=== PATIENT | male | born 2000 | race Two or more races ===

== ENCOUNTER → 2020-05-18 | Day surgery (SDC) | payer OTHER ==
[2020-05-18] VITALS (11 sets, daily range): BP systolic 124–142; BP diastolic 71–87
[~2020-05-18] VITALS: Ht 167.6 cm; Wt 68.0 kg
[~2020-05-18] MED LIST: Bacitracin 50000 Units Vial ONE; Bupivacaine 0.25% Inj 30ml INJ ONE; D5 1/2NS 1,000 ML IV SCH; DiphenhydrAMINE 50mg/ml Inj IVP PRN; EPINEPHrine 1mg/1ml Amp ONE; HYDROcodone/Acetamin 5/325 tab ORAL PRN; HYDROmorphone 1mg/ml Carpuject SUBQ PRN; Hydrogen Peroxide 473ml Bottle TOPIC ONE; Hydromorphone 0.5mg/0.5ml inj IVP PRN; Ketorolac 30mg Inj IV PRN; Ketorolac 30mg Inj ONE; LORazepam Inj 2mg/ml 1ml IV PRN; LR 1000ml 1,000 ML IVLG SCH; Labetalol 5mg/ml 20ml vial IV PRN; Lidocaine 1% MPF 10mg/ml 5ml ONE; Metoclopramide 10mg/2ml Inj IVP PRN; Metoclopramide 10mg/2ml Inj ONE; Midazolam 2mg/2ml Inj ONE; NeoSporin Gu Irrig 1ml Amp IRRIG ONE; TYLENOL EXTRA500 MG ORAL; Tylenol #3 tab (300mg/30mg) ORAL PRN; ceFAZolin 1gm IVPB IVPB ONE; celeBREX 200mg Cap **SURGERY PATIENTS ONLY ORAL ONE; fentaNYL 100 mcg/2 mL IV ONE; fentaNYL 100 mcg/2 mL IV PRN; oxyCONTIN 20mg tab ORAL ONE
--- NOTE | 2020-05-18 11:32 | Anethesia Preoperative Eval ---
Anesthesia Pre-op PMH/ROS General Date of Evaluation: May 18, 2020 Anesthesiologist: Yoni ASA Score: ASA 1 Mallampati Score Class I : Soft palate, uvula, fauces, pillars visible Class II: Soft palate, uvula, fauces visible Class III: Soft palate, base of uvula visible Class IV: Only hard plate visible Mallampati Classification: Class I Surgeon: Genaro Diagnosis: Right ankle fracture Surgical Procedure: Right ankle ORIF Anesthesia History: none Family History: no anesthesia problems Allergies: Coded Allergies: No Known Allergies (Unverified , 05/18/20) Medications: see eMAR Patient NPO?: Yes NPO Date: May 18, 2020 NPO Time: 00:00 Past Medical History Cardiovascular: Denies: HTN, CAD, ME, valve dz, arrhythmia, other Pulmonary: Denies: asthma, COPD, ÁLVARO, other Gastrointestinal/Genitourinary: Denies: GERD, CRI, ESRD, other Neurologic/Psychiatric: Denies: dementia, CVA, depression/anxiety, TIA, other Endocrine: Denies: DM, hypothyroidism, steroids, other HEENT: Denies: cataract (L), cataract (R), glaucoma, LUMMI (L), LUMMI (R), other Hematology/Immune: Denies: anemia, DVT, bleeding disorder, other Musculoskeletal/Integumentary: Denies: OA, RA, DJD, DDD, edema, other PSxH Narrative: Denies Anesthesia Pre-op Phys. Exam Physician Exam see chart Constitutional: NAD Cardiovascular: RRR Respiratory: CTA Airway Exam Mallampati Score: Class I MO: full ROM: full Teeth: intact Anesthesia Pre-op A/P Labs see chart Risk Assessment & Plan Assessment: ASA I Plan: GA with peripheral nerve block Status Change Before Surgery: No Pre-Antibiotics Drug: Ancef 1g Given Within 1 Hr of Incision: Yes Ashli Vallejo MD May 18, 2020 11:32
--- NOTE | 2020-05-18 13:58 | Pre-Procedure Note/Attestation ---
Pre-Procedure Note/Attestation Complete Prior to Procedure Planned Procedure: left Procedure Narrative: ankle orif Indications for Procedure Pre-Operative Diagnosis: left ankle fracture Attestation I attest that I discussed the nature of the procedure; its benefits; risks and complications; and alternatives (and the risks and benefits of such alternatives), prior to the procedure, with the patient (or the patient's legal indirect sales representative). I attest that, if there was a reasonable possibility of needing a blood yoo sfusion, the patient (or the patient's legal indirect sales representative) was given the [facility] standardized written summary, pursuant to the [employer] Blood Safety Act ([place] Health and Safety Code # 1645, as amended). I attest that I re-evaluated the patient just prior to the surgery and that there has been no change in the patient's H&P, except as documented below: Leroy Lam MD May 18, 2020 13:58
--- NOTE | 2020-05-18 13:58 | Operative Note - PDOC ---
Operative Note Operative Note Pre-op Diagnosis: left ankle fracture Procedure: see op report Post-op Diagnosis: same as pre-op plus Operative Findings: consistent w/pre-op dx studies Anesthesia: regional Specimen: none Complications: none Condition: stable Estimated Blood Loss: none Implant(s) used?: Yes Leroy Lam MD May 18, 2020 13:58
--- NOTE | 2020-05-18 17:31 | 48 Hour Post Anesthesia Eval ---
Post Anesthesia Evaluation Procedure: Right ankle ORIF Date of Evaluation: May 18, 2020 Airway: patent Nausea: No Vomiting: No Pain Intensity: 0 Hydration Status: adequate Cardiopulmonary Status: at baseline Mental Status/LOC: patient returned to baseline Post-Anesthesia Complications: 0 Follow-up care needed: ready to discharge Ashli Vallejo MD May 18, 2020 17:31
--- NOTE | 2020-05-18 17:31 | Immediate Post-Op Evaluation ---
Immediate Post-Op Evalulation Immediate Post-Op Evalulation Procedure: Right ankle ORIF Date of Evaluation: May 18, 2020 Time of Evaluation: 17:32 IV Fluids: 750 Blood Products: 0 Estimated Blood Loss: min Urinary Output: 0 Blood Pressure Systolic: 134 Blood Pressure Diastolic: 71 Pulse Rate: 98 Respiratory Rate: 16 O2 Sat by Pulse Oximetry: 100 Temperature (Fahrenheit): 99 Pain Score (1-10): 0 Nausea: No Vomiting: No Complications 0 Patient Status: awake, reacts, patent, none Hydration Status: adequate Drug: Ancef 1g Given Within 1 Hr of Incision: Yes Ashli Vallejo MD May 18, 2020 17:31
--- NOTE | 2020-05-19 01:14 | Operative Note - Dictated ---
DATE OF OPERATION: 05/18/2020 PREOPERATIVE DIAGNOSES: 1. Right pronation external rotation ankle fracture dislocation. 2. Right syndesmosis instability. POSTOPERATIVE DIAGNOSES: 1. Right pronation external rotation ankle fracture dislocation. 2. Right syndesmosis instability. PROCEDURES: 1. Open reduction and internal fixation of right ankle fracture dislocation with plate and screw fixation of the fibula, closed reduction and percutaneous pinning, medial malleolus. 2. Open syndesmosis repair. 3. Application of posterior splint. SURGEON: Leroy Lam MD ANESTHESIA: Popliteal with general. INDICATION FOR PROCEDURE: Patient is a pleasant gentleman who has had a significant injury to his right ankle. He was diagnosed with unstable ankle fracture dislocation indicative of operative fixation. Risks, limitations, expectations, and complications of procedure were discussed in detail including nonunion, malunion, need for future surgery, risk of anesthesia, medical complications, DVT, PE, mortality risks, need for future surgeries such as removal of the hardware, and additional comorbidities were all discussed in detail, questions were addressed. DESCRIPTION OF PROCEDURE: After informed consent was obtained, patient was brought into the operating room. Patient was placed under general anesthesia. Right leg was prepped and draped in a sterile manner. Time-out was performed. Examination under anesthesia showed positive disruption of syndesmosis, external rotation test. The fibula appeared to be somewhat transverse. Skin was marked out on the lateral fibula. Skin was incised. Subcutaneous fascia was dissected out maintained good subcutaneous flaps. Lateral aspect of the fibula was fracture site. There was an oblique nature of the fracture site, which allowed it to have lag screw fixation. Therefore, reduction of the fibula was performed. A lag screw was placed. Once that was done, a 7-hole tubular plate was selected and placed along the fibula. Two proximal and one distal locking screws were placed. At this point, attention was turned towards the medial malleus fixation. K-wire was then placed at the medial malleolus along with two 32 mm partially-threaded cannulated screws. Once this was done, external rotation drawer test was still somewhat positive the syndesmosis. Therefore, 2 Biomet syndesmosis repair suture anchor implants were placed. Once the syndesmosis was repaired, external rotation and drawer tests were negative. with external drawer test showed good reduction of the medial and lateral mortise with no widening of the syndesmosis of the external rotation test. At this point, the wound was copiously irrigated. Subcutaneous tissue was approximated using 2-0 Vicryl, 3-0 Vicryl, and 3-0 Monocryl sutures. Steri-Strips and a sterile dressing were applied along with the posterior splint. The patient was awoken and taken to the recovery room with stable vital signs. ESTIMATED BLOOD LOSS: None. COMPLICATIONS: None. SPECIMENS: None. IMPLANTS: Include Kb one-third tubular plate, 3 cortical screws, two 32 mm partially threaded cannulated screws, 2 Biomet open syndesmosis, TightRope Repair Kit implants. Leroy Lam M.D. DR: DANIELLA JOB#: [id number] CC: ABRIL
--- NOTE | 2020-05-19 16:40 | Diagnostic Imaging Report ---
INDICATION: Pain, intraoperative TECHNIQUE: Intraoperative imaging Fluoroscopy time: 41.8 seconds Total dose: 0.08279 mGym2 Total number of images: 5 COMPARISON: None FINDINGS: Intraoperative images document surgical repair of distal fibular shaft and medial malleolar fractures IMPRESSION: Intraoperative imaging, as described
== END | disposition home or self-care (01) ==
LOC: SUR 12:44
DX: S82.51XA Displaced fracture of medial malleolus of right tibia, initial encounter for closed fracture (principal); S82.491A Other fracture of shaft of right fibula, initial encounter for closed fracture; M25.371 Other instability, right ankle
CPT/HCPCS: 27792; 27829; 73610; 76000; 94003; C1713; J0690; J1100; J1885; J2250; J2405; J2704; J2765; J3010; U0004; 94150